=== PATIENT | female | born 1965 | race Hispanic/Latino ===

== ENCOUNTER 2017-06-21 13:41 | Outpatient (CLI) | payer BC ==
--- NOTE | 2017-06-21 15:31 | Mammography Report ---
Screening mammogram: Routine views are obtained and compared to prior exams in 2013 and 2015. There is generally fatty replaced tissue. The residual fibroglandular elements are generally symmetric in distribution. In the left CC projection laterally there is a circumscribed 4.6 mm density which is not identified in the lateral projection nor on the previous exams in either projection. The breast pattern otherwise is unremarkable bilaterally. CAD used. Impression: Left asymmetry. Recommendation: Additional compression imaging of the left breast and ultrasound as needed. BI-RADS CATEGORY: 0 = Needs additional imaging evaluation ACR BI-RADS MAMMOGRAPHIC CODES: 0 = Needs additional imaging evaluation; 1 = Negative; 2 = Benign; 3 = Probably benign; 4 = Suspicious; 5 = Malignant; 6 = Known biopsy-proven malignancy COMMENT: 1. Dense breast tissue, i.e., adenosis, fibrocystic changes, etc., may obscure an underlying neoplasm. 2. Approximately 10% of cancers are not detected with mammography. 3. A negative mammography report should not delay biopsy if a clinically suspicious mass is present.
== END 2017-06-21 13:42 | disposition home or self-care (01) ==
LOC: MAMMO 13:41
PROVIDERS: ATTEND Obstetrics & Gynecology
DX: Z12.31 Encounter for screening mammogram for malignant neoplasm of breast (principal); M06.9 Rheumatoid arthritis, unspecified
CPT/HCPCS: 77067; G0202

== ENCOUNTER 2017-09-24 10:38 | Outpatient (CLI) | payer BC ==
--- NOTE | 2017-09-24 11:54 | XRay Report ---
CERVICAL SPINE, 6 VIEWS HISTORY: Cervicalgia, neck pain. FINDINGS: There is normal bone mineralization. No evidence for fracture, subluxation or bone lesion. There is straightening of the normal cervical lordosis on the neutral lateral image. Flexion and extension lateral views were also obtained which demonstrate no evidence for subluxation/instability. Minimal disc space narrowing and uncovertebral spurring is identified at C4-5 and C5-6. The remaining disc levels are within normal limits. The oblique images are of good quality and demonstrate no significant neural foraminal impingement. There is minimal bilateral neural foraminal narrowing at C3-4 estimated 25% or less. The remaining neural foramen are widely patent. Mild facet arthropathy on the left side is suspected at C3-4 and C4-5. The remaining facet joints are unremarkable. Prevertebral soft tissues are normal. IMPRESSION: Mild straightening of the normal lordosis. This could be secondary to muscular spasm or positioning of the patient. No evidence for instability, fracture or bone lesion. Early degenerative disc disease and facet arthropathy as described.
--- NOTE | 2017-09-24 11:55 | XRay Report ---
ROUTINE CHEST, TWO VIEWS: HISTORY: chest pain, cervicalgia. The trachea, heart, mediastinal contour, lung pressley and bony thorax are unremarkable. IMPRESSION: Normal chest.
--- NOTE | 2017-09-24 11:57 | XRay Report ---
BILATERAL FEET, 3 VIEWS HISTORY: Bilateral foot pain. FINDINGS: There is normal bone mineralization. No evidence for fracture, malalignment or erosive joint pathology. No significant osteoarthritic changes. Tiny bilateral accessory navicular bones are identified measuring less than 5 mm. Tiny plantar spur on the right foot is noted. The soft tissues are within normal limits. IMPRESSION: Essentially unremarkable x-ray of the bilateral feet. Small bilateral accessory navicular bones which are probably incidental findings. Tiny plantar spur on right side.
== END 2017-09-24 10:39 | disposition home or self-care (01) ==
LOC: XRAY 10:38
PROVIDERS: ATTEND Specialist
DX: M50.30 Other cervical disc degeneration, unspecified cervical region (principal); M05.70 Rheumatoid arthritis with rheumatoid factor of unspecified site without organ or systems involvement; R07.9 Chest pain, unspecified; M12.88 Other specific arthropathies, not elsewhere classified, other specified site; Z79.899 Other long term (current) drug therapy
CPT/HCPCS: 71020; 72052

== ENCOUNTER 2018-08-19 15:34 | Outpatient (CLI) | payer BC ==
[2018-08-19 16:33] LABS: Basophils # (Auto) 0.1 K/mm3 (0.0-0.1); Basophils % (Auto) 1.1 % (0.0-1.8); Eosinophils # (Auto) 0.2 K/mm3 (0.0-0.4); Eosinophils % (Auto) 2.5 % (0.0-4.3); Hematocrit 39.6 % (30.3-42.9); Hemoglobin 13.6 gm/dl (10.1-14.3); Lymphocytes # (Auto) 2.6 K/mm3 (1.2-5.4); Lymphocytes % (Auto) 39.6 % (13.4-35.0); Mean Corpuscular HGB Conc 34 % (30-34); Mean Corpuscular Hemoglobin 33 pg (28-32); Mean Corpuscular Volume 96 fl (79-97); Monocytes # (Auto) 0.4 K/mm3 (0.0-0.8); Monocytes % (Auto) 6.8 % (0.0-7.3); Platelet Count 220 K/mm3 (140-440); Red Blood Count 4.14 M/mm3 (3.65-5.03); Red Cell Distribution Width 14.2 % (13.2-15.2)
[2018-08-19 16:51] LABS: Erythrocyte Sedimentation Rate 17 mm/Hr (0-20)
[2018-08-19 17:13] LABS: Alanine Aminotransferase 20 units/L (7-56); Albumin 4.7 g/dL (3.9-5); BUN/Creatinine Ratio 23; Blood Urea Nitrogen 14 mg/dL (7-17); Calcium 9.6 mg/dL (8.4-10.2); Hemolysis Index 13
== END 2018-08-19 15:35 | disposition home or self-care (01) ==
LOC: LAB 15:34
DX: M05.79 Rheumatoid arthritis with rheumatoid factor of multiple sites without organ or systems involvement (principal)
CPT/HCPCS: 36415; 80053; 85025; 85652; 86140; 86706

== ENCOUNTER 2018-12-17 15:31 | Outpatient (CLI) | payer BC ==
[2018-12-17 16:10] LABS: Basophils # (Auto) 0.1 K/mm3 (0.0-0.1); Basophils % (Auto) 1.1 % (0.0-1.8); Eosinophils # (Auto) 0.2 K/mm3 (0.0-0.4); Eosinophils % (Auto) 2.8 % (0.0-4.3); Hematocrit 37.9 % (30.3-42.9); Hemoglobin 13.4 gm/dl (10.1-14.3); Lymphocytes # (Auto) 2.5 K/mm3 (1.2-5.4); Lymphocytes % (Auto) 38.1 % (13.4-35.0); Mean Corpuscular HGB Conc 35 % (30-34); Mean Corpuscular Volume 94 fl (79-97); Monocytes # (Auto) 0.5 K/mm3 (0.0-0.8); Monocytes % (Auto) 7.9 % (0.0-7.3); Platelet Count 199 K/mm3 (140-440); Red Blood Count 4.03 M/mm3 (3.65-5.03); Red Cell Distribution Width 12.7 % (13.2-15.2)
[2018-12-17 16:16] LABS: Alanine Aminotransferase 27 units/L (7-56); Albumin 4.6 g/dL (3.9-5); BUN/Creatinine Ratio 30; Blood Urea Nitrogen 15 mg/dL (7-17); Calcium 9.3 mg/dL (8.4-10.2); Hemolysis Index 6
[2018-12-17 16:41] LABS: Erythrocyte Sedimentation Rate 10 mm/Hr (0-20)
== END 2018-12-17 15:32 | disposition home or self-care (01) ==
LOC: LAB 15:31
PROVIDERS: ATTEND Internal Medicine Rheumatology
DX: M05.79 Rheumatoid arthritis with rheumatoid factor of multiple sites without organ or systems involvement (principal); M19.90 Unspecified osteoarthritis, unspecified site
CPT/HCPCS: 36415; 80053; 85025; 85652

== ENCOUNTER 2019-03-20 10:43 | Outpatient (CLI) | payer BC ==
[2019-03-20 11:15] LABS: Basophils # (Auto) 0.1 K/mm3 (0.0-0.1); Basophils % (Auto) 1.1 % (0.0-1.8); Eosinophils # (Auto) 0.2 K/mm3 (0.0-0.4); Eosinophils % (Auto) 2.7 % (0.0-4.3); Hematocrit 42.6 % (30.3-42.9); Hemoglobin 14.5 gm/dl (10.1-14.3); Lymphocytes % (Auto) 28.9 % (13.4-35.0); Mean Corpuscular HGB Conc 34 % (30-34); Mean Corpuscular Volume 98 fl (79-97); Monocytes # (Auto) 0.5 K/mm3 (0.0-0.8); Monocytes % (Auto) 7.8 % (0.0-7.3); Platelet Count 218 K/mm3 (140-440); Red Blood Count 4.34 M/mm3 (3.65-5.03); Red Cell Distribution Width 14.1 % (13.2-15.2)
[2019-03-20 11:52] LABS: Alanine Aminotransferase 26 units/L (7-56); Albumin 4.4 g/dL (3.9-5); BUN/Creatinine Ratio 17; Blood Urea Nitrogen 10 mg/dL (7-17); Calcium 9.5 mg/dL (8.4-10.2); Hemolysis Index 11
[2019-03-20 11:57] LABS: Erythrocyte Sedimentation Rate 2 mm/Hr (0-20)
--- NOTE | 2019-03-20 14:24 | Cat Scan Report ---
CT THORACIC SPINE WITHOUT CONTRAST History: Acute left-sided back pain. Technique: Helical CT in 1.25 mm intervals. Sagittal and coronal reformatted images. Comparison: No relevant comparison. FINDINGS: There is normal bone mineralization. Normal height and alignment of the thoracic vertebral bodies. The posterior elements are in appropriate relationship. No evidence for fracture, subluxation or bone lesion. Minimal disc space narrowing and anterior spurring is identified at T6-7. The remaining disc levels are within normal limits. The facet joints are unremarkable. No significant facet arthropathy. Although intraspinal contents can be obscured on CT, the spinal canal appears normal diameter. No large bulging disc or epidural process is identified. The paraspinal soft tissues are within normal limits. IMPRESSION: Essentially unremarkable CT of the thoracic spine. Minimal degenerative disc disease at T6-7.
--- NOTE | 2019-03-20 14:29 | Cat Scan Report ---
CT LUMBAR SPINE WITHOUT CONTRAST HISTORY: Acute left sided back pain without sciatica. TECHNIQUE: Helical CT with sagittal and coronal reformatted images. COMPARISON: No relevant comparisons at this facility. FINDINGS: There is normal height and alignment of the lumbar vertebral bodies. No evidence for fracture, subluxation or bone lesion. The posterior elements are in appropriate relationship. Mild osteoarthritic changes are noted in the lower lumbar spine. Although intraspinal contents can be obscured on CT, there is no evidence for a large bulging disc or epidural process. No central canal stenosis. L1-2: No significant abnormality. L2-3: No significant abnormality L3-4: No significant abnormality with the disc. There is mild left facet arthropathy. L4-5: Mild disc space narrowing and minimal bilateral facet arthropathy are noted. L5-S1: Mild disc space narrowing with mild right lateral spurring is identified. Mild facet arthropathy. Mild right neural foraminal narrowing is estimated at 50%. IMPRESSION: Mild lumbar spondylosis as outlined above. No acute injury is appreciated on CT.
== END 2019-03-20 10:44 | disposition home or self-care (01) ==
LOC: XRAY 10:43
PROVIDERS: ATTEND Family Medicine
DX: M47.816 Spondylosis without myelopathy or radiculopathy, lumbar region (principal); M46.87 Other specified inflammatory spondylopathies, lumbosacral region; M48.02 Spinal stenosis, cervical region; Z79.899 Other long term (current) drug therapy; M51.34 Other intervertebral disc degeneration, thoracic region; M48.04 Spinal stenosis, thoracic region
CPT/HCPCS: 36415; 72128; 72131; 80053; 85025; 85652

== ENCOUNTER 2019-08-20 15:35 | Outpatient (CLI) | payer BC ==
[2019-08-20 16:04] LABS: Basophils # (Auto) 0.1 K/mm3 (0.0-0.1); Basophils % (Auto) 1.2 % (0.0-1.8); Eosinophils # (Auto) 0.1 K/mm3 (0.0-0.4); Eosinophils % (Auto) 1.9 % (0.0-4.3); Hematocrit 39.4 % (30.3-42.9); Hemoglobin 13.4 gm/dl (10.1-14.3); Lymphocytes # (Auto) 1.9 K/mm3 (1.2-5.4); Lymphocytes % (Auto) 31.8 % (13.4-35.0); Mean Corpuscular HGB Conc 34 % (30-34); Mean Corpuscular Volume 96 fl (79-97); Monocytes # (Auto) 0.4 K/mm3 (0.0-0.8); Monocytes % (Auto) 6.9 % (0.0-7.3); Platelet Count 233 K/mm3 (140-440); Red Blood Count 4.09 M/mm3 (3.65-5.03); Red Cell Distribution Width 13.5 % (13.2-15.2)
[2019-08-20 16:15] LABS: Alanine Aminotransferase 22 units/L (7-56); Albumin 4.7 g/dL (3.9-5); BUN/Creatinine Ratio 22; Blood Urea Nitrogen 13 mg/dL (7-17); Calcium 9.5 mg/dL (8.4-10.2); Hemolysis Index 4
[2019-08-20 16:36] LABS: Erythrocyte Sedimentation Rate 30 mm/Hr (0-20)
== END 2019-08-20 15:36 | disposition home or self-care (01) ==
LOC: LAB 15:35
PROVIDERS: ATTEND Internal Medicine Rheumatology
DX: M05.79 Rheumatoid arthritis with rheumatoid factor of multiple sites without organ or systems involvement (principal); Z79.899 Other long term (current) drug therapy
CPT/HCPCS: 36415; 80053; 85025; 85652

== ENCOUNTER 2019-12-03 15:52 | Outpatient (CLI) | payer BC ==
[2019-12-03 16:12] LABS: Basophils # (Auto) 0.1 K/mm3 (0.0-0.1); Basophils % (Auto) 0.8 % (0.0-1.8); Eosinophils # (Auto) 0.1 K/mm3 (0.0-0.4); Eosinophils % (Auto) 1.9 % (0.0-4.3); Hematocrit 37.3 % (30.3-42.9); Lymphocytes # (Auto) 2.7 K/mm3 (1.2-5.4); Lymphocytes % (Auto) 39.3 % (13.4-35.0); Mean Corpuscular HGB Conc 35 % (30-34); Mean Corpuscular Volume 95 fl (79-97); Monocytes # (Auto) 0.5 K/mm3 (0.0-0.8); Monocytes % (Auto) 7.4 % (0.0-7.3); Platelet Count 243 K/mm3 (140-440); Red Blood Count 3.93 M/mm3 (3.65-5.03); Red Cell Distribution Width 13.5 % (13.2-15.2)
[2019-12-03 16:35] LABS: Alanine Aminotransferase 23 units/L (7-56); Albumin 4.6 g/dL (3.9-5); BUN/Creatinine Ratio 20; Blood Urea Nitrogen 12 mg/dL (7-17); Calcium 9.4 mg/dL (8.4-10.2); Hemolysis Index 3
[2019-12-03 16:41] LABS: Bilirubin,Direct < 0.2 mg/dL (0-0.2)
== END 2019-12-03 15:53 | disposition home or self-care (01) ==
LOC: LAB 15:52
PROVIDERS: ATTEND Internal Medicine Rheumatology
DX: Z79.899 Other long term (current) drug therapy (principal)
CPT/HCPCS: 36415; 80053; 80076; 85025

== ENCOUNTER 2020-03-26 06:29 | Outpatient (CLI) | payer BC ==
[2020-03-26 07:03] LABS: Chol/HDL Ratio 3.7 %
--- NOTE | 2020-03-26 08:27 | Mammography Report ---
DIGITAL SCREENING MAMMOGRAM WITH CAD, 03/26/2020 INDICATION: Routine screening mammography. TECHNIQUE: Digital bilateral 2D mammography was obtained in the craniocaudal and mediolateral obliq ue projections. This examination was interpreted with the benefit of Computer-Aided Detection analysi s. COMPARISON: 06/21/2017, 06/07/2015. FINDINGS: Breast Density: There are scattered areas of fibroglandular density. There is no evidence of dominant mass, suspicious calcifications or architectural distortion in eithe r breast. IMPRESSION: Follow up recommendation: Routine yearly BI-RADS Category 1: Negative. A "normal" or negative report should not discourage follow up or biopsy of a clinically significant f inding. A written summary of these findings will be mailed to the patient. The patient will be entered into a mammography reporting system which will generate a reminder letter for the patient's next appointmen t at the appropriate interval. The [employer] recommends yearly mammograms starting at age 40 and continuing as l emilee as a woman is in good health. Breast MRI is recommended for women with an approximate 20-25% or greater lifetime risk of breast cancer, including women with a strong family history of breast or ova mahin cancer or who have been treated for Hodgkin's disease. Signer Name: Jian Hernandez MD Signed: 03/26/2020 8:23 AM Workstation Name: [email or web address]
== END 2020-03-26 06:30 | disposition home or self-care (01) ==
LOC: LAB 06:29
PROVIDERS: ATTEND Internal Medicine Rheumatology
DX: Z12.31 Encounter for screening mammogram for malignant neoplasm of breast (principal); M05.79 Rheumatoid arthritis with rheumatoid factor of multiple sites without organ or systems involvement; Z79.899 Other long term (current) drug therapy
CPT/HCPCS: 36415; 77067; 80061

== ENCOUNTER 2020-09-10 12:36 | Emergency (ER) | payer BC ==
[2020-09-10 13:21] VITALS: BP 160/83
--- NOTE | 2020-09-10 15:45 | Emergency Department Report ---
ED Female HPI - General Chief complaint: Urogenital-Female Stated complaint: BLADDER INFECTION Source: patient Mode of arrival: Ambulatory Limitations: No Limitations - History of Present Illness Initial comments: 55 y/o female comes in for a couples weeks of pelvic spasms. Sunday started having dysuria and right flank pain. No sure if she has blood in her urine. No fevers but having chills and nausea. Patient reports that she is been currently taking Macrobid for urinary tract infection. Patient does report a history of UTIs. She admits to nausea no vomiting today and has chills. Patient states that she is a means suppressant for her rheumatoid arthritis. She reports that she is currently menopausal. MD Complaint: dysuria, pelvic pain Onset/Timin -: week(s) Radiation: R flank Severity scale (0 -10): 6 Quality: cramping Consistency: intermittent Improves with: none Worsens with: none Are you Now?: No Associated Symptoms: nausea/vomiting (Nausea), dysuria. denies: vaginal discharge, vaginal bleeding, fever/chills (Chills), loss of appetite, hematuria, shortness of breath, syncope, weakness - Related Data Previous Rx's Medication Instructions Recorded Last Taken Type Cyclobenzaprine [Flexeril] 10 mg PO TID PRN #30 tablet 10/06/16 Unknown Rx Ibuprofen [Motrin] 800 mg PO Q8HR PRN #30 tablet 10/06/16 Unknown Rx Amoxicillin/K Clav Tab [Augmentin 1 tab PO Q12HR 7 Days #14 tab 09/10/20 Unknown Rx 875 mg] Allergies Allergy/AdvReac Type Severity Reaction Status Date / Time No Known Allergies Allergy Unverified 06/07/15 10:08 ED Review of Systems ROS: Stated complaint: BLADDER INFECTION Other details as noted in HPI Comment: All other systems reviewed and negative ED Past Medical Hx - Past Medical History Previous Medical History?: Yes Hx Arthritis: Yes (RA) - Surgical History Past Surgical History?: Yes Additional Surgical History: TUBAL LIGATION - Social History Smoking Status: Never Smoker Substance Use Type: Alcohol - Medications Home Medications: Home Medications Medication Instructions Recorded Confirmed Last Taken Type Cyclobenzaprine [Flexeril] 10 mg PO TID PRN #30 tablet 10/06/16 Unknown Rx Ibuprofen [Motrin] 800 mg PO Q8HR PRN #30 tablet 10/06/16 Unknown Rx Amoxicillin/K Clav Tab [Augmentin 1 tab PO Q12HR 7 Days #14 tab 09/10/20 Unknown Rx 875 mg] ED Physical Exam - General Limitations: No Limitations General appearance: alert, in no apparent distress - Head Head exam: Present: atraumatic, normocephalic - Eye Eye exam: Present: normal appearance - ENT ENT exam: Present: mucous membranes moist - Neck Neck exam: Present: normal inspection, full ROM - Respiratory Respiratory exam: Present: normal lung sounds bilaterally. Absent: respiratory distress - Cardiovascular Cardiovascular Exam: Present: regular rate, normal rhythm. Absent: systolic murmur, diastolic murmur, rubs, gallop - GI/Abdominal GI/Abdominal exam: Present: soft, tenderness (Right upper quadrant and super pubic). Absent: distended - Back Exam Back exam: Present: normal inspection, full ROM. Absent: tenderness, CVA tenderness (R), CVA tenderness (L) - Neurological Exam Neurological exam: Present: alert, oriented X3, normal gait - Psychiatric Psychiatric exam: Present: normal affect, normal mood - Skin Skin exam: Present: warm, dry, intact, normal color. Absent: rash ED Course Vital Signs 09/10/20 09/10/20 13:17 13:18 Temperature 98.2 F 98.2 F Pulse Rate 78 Respiratory 18 Rate Blood Pressure 160/83 [Right] O2 Sat by Pulse 100 Oximetry ED Medical Decision Making - Radiology Data Radiology results: report reviewed Patient: RUY OSULLIVAN MR#: [id number] : 1965 Acct:[id number] Age/Sex: 55 / F ADM Date: 09/10/20 Loc: ED Attending Dr: Ordering Physician: SOY TAO Date of Service: 09/10/20 Procedure(s): CT abdomen pelvis wo con Accession Number(s): [id number] cc: SOY TAO CT ABDOMEN AND PELVIS WITHOUT CONTRAST INDICATION: right flank pain. TECHNIQUE: Axial CT images were obtained through the abdomen and pelvis without IV contrast. All CT scans at this location are performed using CT dose reduction for ALARA by means of automated exposure cont rol. COMPARISON: CT abdomen and pelvis 10/06/2016 FINDINGS: LOWER CHEST: No significant abnormality. LIVER: No significant abnormality. GALLBLADDER: Large 2.7 cm lamellated gallstone without CT evidence for cholecystitis. BILE DUCTS: No significant abnormality. PANCREAS: No significant abnormality. SPLEEN: No significant abnormality. ADRENALS: No significant abnormality. RIGHT KIDNEY and URETER: No significant abnormality. LEFT KIDNEY and URETER: No significant abnormality. STOMACH and SMALL BOWEL: No significant abnormality. COLON: Moderate sigmoid and mild colonic diverticulosis without diverticulitis. Large amount of solid stool characteristic for constipation APPENDIX: Normal PERITONEUM: No free fluid. No free air. No fluid collection. LYMPH NODES: No significant adenopathy. AORTA and ARTERIES: No significant abnormality. IVC and VEINS: No significant abnormality. URINARY BLADDER: No significant abnormality. REPRODUCTIVE ORGANS: No significant abnormality. ADDITIONAL FINDINGS: None. SKELETAL SYSTEM: No significant abnormality. IMPRESSION: 1. No urinary tract calculi or hydronephrosis 2. Cholelithiasis and moderate sigmoid diverticulosis 3. Constipation Signer Name: Krystian Stinson MD Signed: 09/10/2020 5:46 PM Workstation Name: [id number] Transcribed By: TL Dictated By: Krystian Stinson MD Electronically Authenticated By: Krystian Stinson MD Signed Date/Time: 09/10/201745 DD/ 43 TD/TT: - Medical Decision Making 55 y/o female comes in for a couples weeks of pelvic spasms. Sunday started having dysuria and right flank pain. No sure if she has blood in her urine. No fevers but having chills and nausea. Patient reports that she is been currently taking Macrobid for urinary tract infection. Patient does report a history of UTIs. She admits to nausea no vomiting today and has chills. Patient states that she is a means suppressant for her rheumatoid arthritis. She reports that she is currently menopausal. CT scan shows that you have cholelithiasis with a gallstone of 2.7 mm, constipation and diverticulosis. As we discussed I will place you on Augmentin 875 mg twice a day for 7 days to see if that improves your concern for urinary tract infection. As I discussed we need to increase your fiber you can try taking the MiraLAX twice a day or mag citrate x1 dose this weekend to see if you are able to clean out your colon at that improve the spasms that you are having in your bladder or pelvis. I would like you to continue with some Tylenol or ibuprofen for pain management. Be sure to increase your water intake. IM sinew to a general surgeon to evaluate your cholelithiasis. I would like you to also follow-up with a GI specialist for your diverticulosis. You may benefit from following up with your CARBIDE OPERATOR or your primary care provider for your bladder spasms. Critical care attestation.: If time is entered above; I have spent that time in minutes in the direct care of this critically ill patient, excluding procedure time. ED Disposition Clinical Impression: Diverticulosis, Painful bladder spasm Cholelithiasis Qualifiers: Cholelithiasis location: gallbladder Cholecystitis presence: without cholecys titis Biliary obstruction: without biliary obstruction Qualified Code(s): K80.20 - Calculus of gallbladder without cholecystitis without obstruction Constipation Qualifiers: Constipation type: unspecified constipation type Qualified Code(s): K59.00 - Constipation, unspecified Disposition: TO HOME OR SELFCARE Is pt being admited?: No Does the pt Need Aspirin: No Condition: Stable Instructions: Diverticulosis (ED), Diverticulosis Diet (ED), Constipation (ED), High Fiber Diet (ED), Cholelithiasis (ED) Additional Instructions: CT scan shows that you have cholelithiasis with a gallstone of 2.7 mm, constipation and diverticulosis. As we discussed I will place you on Augmentin 875 mg twice a day for 7 days to see if that improves your concern for urinary tract infection. As I discussed we need to increase your fiber you can try taking the MiraLAX twice a day or mag citrate x1 dose this weekend to see if you are able to clean out your colon at that improve the spasms that you are having in your bladder or pelvis. I would like you to continue with some Tylenol or ibuprofen for pain management. Be sure to increase your water intake. IM sinew to a general surgeon to evaluate your cholelithiasis. I would like you to also follow-up with a GI specialist for your diverticulosis. You may benefit from f ollowing up with your CARBIDE OPERATOR or your primary care provider for your bladder spasms. Prescriptions: Amoxicillin/K Clav Tab [Augmentin 875 mg] 1 tab PO Q12HR 7 Days #14 tab Referrals: PRIMARY CARE, [Primary Care Provider] - 3-5 Days PHYLLIS JOHN DO [Staff Physician] - 3-5 Days [facility] [Provider Group] - 3-5 Days [facility] [Provider Group] - 3-5 Days [facility] [Provider Group] - 3-5 Days JUANA CADENA MD [Staff Physician] - 3-5 Days Forms: Work/School Release Form(ED)
[2020-09-10 15:46] LABS: Bilirubin,Urine NEG (Negative); Blood,Urine SM (Negative); Color,Urine Yellow (Yellow); Protein,Urine <15 mg/dL mg/dL (Negative); RBC,Urine < 1.0 /HPF (0.0-6.0); Urobilinogen,Urine < 2.0 mg/dL (<2.0)
[2020-09-10] MEDS ORDERED: PHENAZOPYRIDINE 200 MG TAB PO ONE (15:46)
[2020-09-10] MEDS ORDERED: ACETAMINOPHEN 500 MG TAB PO ONE (15:46)
--- NOTE | 2020-09-10 17:51 | Cat Scan Report ---
CT ABDOMEN AND PELVIS WITHOUT CONTRAST INDICATION: right flank pain. TECHNIQUE: Axial CT images were obtained through the abdomen and pelvis without IV contrast. All CT scans at [facility] location are performed using CT dose reduction for ALARA by means of automated exposure control. COMPARISON: CT abdomen and pelvis 10/06/2016 FINDINGS: LOWER CHEST: No significant abnormality. LIVER: No significant abnormality. GALLBLADDER: Large 2.7 cm lamellated gallstone without CT evidence for cholecystitis. BILE DUCTS: No significant abnormality. PANCREAS: No significant abnormality. SPLEEN: No significant abnormality. ADRENALS: No significant abnormality. RIGHT KIDNEY and URETER: No significant abnormality. LEFT KIDNEY and URETER: No significant abnormality. STOMACH and SMALL BOWEL: No significant abnormality. COLON: Moderate sigmoid and mild colonic diverticulosis without diverticulitis. Large amount of solid stool characteristic for constipation APPENDIX: Normal PERITONEUM: No free fluid. No free air. No fluid collection. LYMPH NODES: No significant adenopathy. AORTA and ARTERIES: No significant abnormality. IVC and VEINS: No significant abnormality. URINARY BLADDER: No significant abnormality. REPRODUCTIVE ORGANS: No significant abnormality. ADDITIONAL FINDINGS: None. SKELETAL SYSTEM: No significant abnormality. IMPRESSION: 1. No urinary tract calculi or hydronephrosis 2. Cholelithiasis and moderate sigmoid diverticulosis 3. Constipation Signer Name: Krystian Stinson MD Signed: 09/10/2020 5:46 PM Workstation Name: [email or web address]
== END 2020-09-10 19:30 | disposition home or self-care (01) ==
LOC: ED 12:36
DX: K57.90 Diverticulosis of intestine, part unspecified, without perforation or abscess without bleeding (principal); K80.20 Calculus of gallbladder without cholecystitis without obstruction; N32.89 Other specified disorders of bladder; M19.90 Unspecified osteoarthritis, unspecified site; Z98.51 Tubal ligation status; Z79.1 Long term (current) use of non-steroidal anti-inflammatories (NSAID); Z79.2 Long term (current) use of antibiotics
CPT/HCPCS: 74176; 81001; 87086

== ENCOUNTER 2021-02-04 15:48 | Outpatient (CLI) | payer BC ==
[2021-02-04 16:13] LABS: Basophils # (Auto) 0.1 K/mm3 (0.0-0.1); Basophils % (Auto) 0.8 % (0.0-1.8); Eosinophils # (Auto) 0.1 K/mm3 (0.0-0.4); Eosinophils % (Auto) 1.1 % (0.0-4.3); Hematocrit 38.4 % (30.3-42.9); Hemoglobin 13.5 gm/dl (10.1-14.3); Lymphocytes # (Auto) 2.8 K/mm3 (1.2-5.4); Lymphocytes % (Auto) 38.1 % (13.4-35.0); Mean Corpuscular HGB Conc 35 % (30-34); Mean Corpuscular Volume 93 fl (79-97); Monocytes # (Auto) 0.7 K/mm3 (0.0-0.8); Monocytes % (Auto) 9.2 % (0.0-7.3); Platelet Count 263 K/mm3 (140-440); Red Blood Count 4.15 M/mm3 (3.65-5.03); Red Cell Distribution Width 12.6 % (13.2-15.2)
[2021-02-04 16:36] LABS: Alanine Aminotransferase 18 units/L (7-56); Albumin 4.5 g/dL (3.9-5); Blood Urea Nitrogen 15 mg/dL (7-17); Calcium 9.2 mg/dL (8.4-10.2); Hemolysis Index 11
[2021-02-04 16:45] LABS: BUN/Creatinine Ratio 21
== END 2021-02-04 15:49 | disposition home or self-care (01) ==
LOC: LAB 15:48
PROVIDERS: ATTEND Internal Medicine Rheumatology
DX: M05.79 Rheumatoid arthritis with rheumatoid factor of multiple sites without organ or systems involvement (principal); Z79.899 Other long term (current) drug therapy
CPT/HCPCS: 36415; 80053; 85025

== ENCOUNTER 2021-06-10 15:43 | Outpatient (CLI) | payer BC ==
[2021-06-10 16:21] LABS: Basophils # (Auto) 0.1 K/mm3 (0.0-0.1); Eosinophils # (Auto) 0.1 K/mm3 (0.0-0.4); Eosinophils % (Auto) 1.3 % (0.0-4.3); Hematocrit 36.8 % (30.3-42.9); Hemoglobin 12.7 gm/dl (10.1-14.3); Lymphocytes # (Auto) 2.6 K/mm3 (1.2-5.4); Lymphocytes % (Auto) 46.5 % (13.4-35.0); Mean Corpuscular HGB Conc 35 % (30-34); Mean Corpuscular Volume 94 fl (79-97); Monocytes # (Auto) 0.5 K/mm3 (0.0-0.8); Monocytes % (Auto) 8.7 % (0.0-7.3); Platelet Count 226 K/mm3 (140-440); Red Blood Count 3.92 M/mm3 (3.65-5.03)
[2021-06-10 16:33] LABS: Alanine Aminotransferase 19 units/L (7-56); Albumin 4.5 g/dL (3.9-5); Blood Urea Nitrogen 14 mg/dL (7-17); Calcium 9.5 mg/dL (8.4-10.2); Hemolysis Index 8
[2021-06-10 16:38] LABS: BUN/Creatinine Ratio 23
[2021-06-10 17:26] LABS: Erythrocyte Sedimentation Rate 17 mm/Hr (0-20)
[2021-06-14 14:33] LABS: Vitamin D, 25-OH, D2 <4 ng/mL
== END 2021-06-10 15:44 | disposition home or self-care (01) ==
LOC: LAB 15:43
PROVIDERS: ATTEND Family Medicine
DX: F41.8 Other specified anxiety disorders (principal); M05.9 Rheumatoid arthritis with rheumatoid factor, unspecified
CPT/HCPCS: 36415; 80053; 82306; 84443; 85025; 85652; 86140

== ENCOUNTER 2021-09-26 14:27 | Emergency (ER) | payer BC ==
[2021-09-26] MEDS ORDERED: ONDANSETRON 4 MG/2 ML INJ IV ONE (15:15)
[2021-09-26] MEDS ORDERED: SODIUM CHLORIDE 0.9% 1000 ML 1,000 ML IV ONE (15:15)
[2021-09-26] MEDS ORDERED: MORPHINE 4 MG/1 ML INJ IV ONE (15:15)
--- NOTE | 2021-09-26 15:23 | Emergency Department Report ---
ED Abdominal Pain HPI - General Chief Complaint: Abdominal Pain Stated Complaint: LOWER ABD PAIN/HEADACHE/ NO BM Time Seen by Provider: 09/26/21 15:02 Source: patient Mode of arrival: Ambulatory Limitations: No Limitations - History of Present Illness Initial Comments: pt is 56-year-old female presents emergency room with complaints of lower abdominal pain that began 2 days ago. She states that she has not been able to have a bowel movement for 2 days. she states that she took senna and Dulcolax without much relief. She has associated nausea and subjective fever. She denies any vomiting, diarrhea, urinary symptoms, melena, hematochezia, hemate mesis. Past medical history of rheumatoid arthritis on immune suppressant. No allergies to medications. Past abdominal surgical history of tubal ligation. - Related Data Previous Rx's Medication Instructions Recorded Last Taken Type Cyclobenzaprine [Flexeril] 10 mg PO TID PRN #30 tablet 10/06/16 Unknown Rx Ibuprofen [Motrin] 800 mg PO Q8HR PRN #30 tablet 10/06/16 Unknown Rx Amoxicillin/K Clav Tab [Augmentin 1 tab PO Q12HR 7 Days #14 tab 09/10/20 Unknown Rx 875 mg] Ciprofloxacin HCl [Ciprofloxacin 500 mg PO BID 7 Days #28 tablet 09/26/21 Unknown Rx TAB] Glycerin 1 each RC DAILY PRN #10 supp.rect 09/26/21 Unknown Rx Magnesium Citrate 295 ml PO ONCE #1 solution 09/26/21 Unknown Rx Ondansetron [Zofran Odt] 4 mg PO Q8HR PRN #8 tab.rapdis 09/26/21 Unknown Rx metroNIDAZOLE [Flagyl] 500 mg PO BID 7 Days #14 tab 09/26/21 Unknown Rx traMADoL [Ultram 50 MG tab] 50 mg PO Q6HR PRN #8 tablet 09/26/21 Unknown Rx Allergies Allergy/AdvReac Type Severity Reaction Status Date / Time No Known Allergies Allergy Unverified 06/07/15 10:08 ED Review of Systems ROS: Stated complaint: LOWER ABD PAIN/HEADACHE/ NO BM Other details as noted in HPI Comment: All other systems reviewed and negative ED Past Medical Hx - Past Medical History Hx Arthritis: Yes (RA) - Surgical History Additional Surgical History: TUBAL LIGATION - Social History Smoking Status: Never Smoker - Medications Home Medications: Home Medications Medication Instructions Recorded Confirmed Last Taken Type Cyclobenzaprine [Flexeril] 10 mg PO TID PRN #30 tablet 10/06/16 Unknown Rx Ibuprofen [Motrin] 800 mg PO Q8HR PRN #30 tablet 10/06/16 Unknown Rx Amoxicillin/K Clav Tab [Augmentin 1 tab PO Q12HR 7 Days #14 tab 09/10/20 Unknown Rx 875 mg] Ciprofloxacin HCl [Ciprofloxacin 500 mg PO BID 7 Days #28 tablet 09/26/21 Unknown Rx TAB] Glycerin 1 each RC DAILY PRN #10 supp.rect 09/26/21 Unknown Rx Magnesium Citrate 295 ml PO ONCE #1 solution 09/26/21 Unknown Rx Ondansetron [Zofran Odt] 4 mg PO Q8HR PRN #8 tab.rapdis 09/26/21 Unknown Rx metroNIDAZOLE [Flagyl] 500 mg PO BID 7 Days #14 tab 09/26/21 Unknown Rx traMADoL [Ultram 50 MG tab] 50 mg PO Q6HR PRN #8 tablet 09/26/21 Unknown Rx ED Physical Exam - General Limitations: No Limitations General appearance: alert, in no apparent distress - Head Head exam: Present: atraumatic, normocephalic - Eye Eye exam: Present: normal appearance - ENT ENT exam: Present: mucous membranes moist - Respiratory Respiratory exam: Present: normal lung sounds bilaterally. Absent: respiratory distress, wheezes, rales, rhonchi, stridor, chest wall tenderness, accessory muscle use, decreased breath sounds, prolonged expiratory - Cardiovascular Cardiovascular Exam: Present: normal rhythm, tachycardia, normal heart sounds - GI/Abdominal GI/Abdominal exam: Present: soft, tenderness (LLQ, suprapubic), normal bowel sounds. Absent: distended, guarding, rebound, rigid - Neurological Exam Neurological exam: Present: alert, oriented X3 - Psychiatric Psychiatric exam: Present: normal affect, normal mood - Skin Skin exam: Present: warm, dry, intact ED Course Vital Signs 09/26/21 09/26/21 09/26/21 14:57 15:45 15:47 Temperature 99.7 F H Pulse Rate 118 H Respiratory 18 16 16 Rate Blood Pressure 130/89 Blood Pressure [Left] O2 Sat by Pulse 99 Oximetry 09/26/21 21:08 Temperature 99.4 F Pulse Rate 109 H Respiratory 18 Rate Blood Pressure Blood Pressure 115/72 [Left] O2 Sat by Pulse 97 Oximetry - Reevaluation(s) Reevaluation #1: 09/26/21 17:03 called lab regarding lab delay, they advised had an issue with the machine and had to reload and it is running now ED Medical Decision Making - Lab Data Result diagrams: 09/26/21 15:19 09/26/21 15:19 Lab Results 09/26/21 09/26/21 09/26/21 Range/Units 15:19 15:19 Unknown WBC 13.7 H (4.5-11.0) K/mm3 RBC 4.01 (3.65-5.03) M/mm3 Hgb 12.9 (10.1-14.3) gm/dl Hct 37.5 (30.3-42.9) % MCV 94 (79-97) fl MCH 32 (28-32) pg MCHC 34 (30-34) % RDW 13.0 L (13.2-15.2) % Plt Count 237 (140-440) K/mm3 Lymph % (Auto) 7.3 L (13.4-35.0) % [place] % (Auto) 3.4 (0.0-7.3) % Eos % (Auto) 0.0 (0.0-4.3) % Baso % (Auto) 0.3 (0.0-1.8) % Lymph # (Auto) 1.0 L (1.2-5.4) K/mm3 [place] # (Auto) 0.5 (0.0-0.8) K/mm3 Eos # (Auto) 0.0 (0.0-0.4) K/mm3 Baso # (Auto) 0.0 (0.0-0.1) K/mm3 Seg Neutrophils % 89.0 H (40.0-70.0) % Seg Neutrophils # 12.2 H (1.8-7.7) K/mm3 Sodium 139 (137-145) mmol/L Potassium 4.5 (3.6-5.0) mmol/L Chloride 99.1 (98-107) mmol/L Carbon Dioxide 20 L (22-30) mmol/L Anion Gap 24 mmol/L BUN 15 (7-17) mg/dL Creatinine 0.6 (0.6-1.2) mg/dL Estimated GFR > 60 ml/min BUN/Creatinine Ratio 25 % Glucose 96 (65-100) mg/dL Calcium 9.1 (8.4-10.2) mg/dL Total Bilirubin 0.80 (0.1-1.2) mg/dL AST 27 (5-40) units/L ALT 20 (7-56) units/L Alkaline Phosphatase 114 (35-129) units/L Total Protein 7.2 (6.3-8.2) g/dL Albumin 4.7 (3.9-5) g/dL Albumin/Globulin Ratio 1.9 % Lipase 25 (13-60) units/L Urine Color Straw (Yellow) Urine Turbidity Clear (Clear) Urine pH 7.0 (5.0-7.0) Ur Specific [place] 1.005 (1.003-1.030) Urine Protein <15 mg/dl (Negative) mg/dL Urine Glucose (UA) Neg (Negative) mg/dL Urine Ketones Neg (Negative) mg/dL Urine Blood Sm (Negative) Urine Nitrite Neg (Negative) Urine Bilirubin Neg (Negative) Urine Urobilinogen < 2.0 (<2.0) mg/dL Ur Leukocyte Esterase Neg (Negative) Urine WBC (Auto) < 1.0 (0.0-6.0) /HPF Urine RBC (Auto) 2.0 (0.0-6.0) /HPF U Epithel Cells (Auto) 2.0 (0-13.0) /HPF Vital Signs (72 hours) 09/26/21 09/26/21 09/26/21 14:57 15:45 15:47 Temperature 99.7 F H Pulse Rate 118 H Respiratory 18 16 16 Rate Blood Pressure 130/89 Blood Pressure [Left] O2 Sat by Pulse 99 Oximetry 09/26/21 21:08 Temperature 99.4 F Pulse Rate 109 H Respiratory 18 Rate Blood Pressure Blood Pressure 115/72 [Left] O2 Sat by Pulse 97 Oximetry - Radiology Data Radiology results: report reviewed Ordering Physician: SOY SAMUEL Date of Service: 09/26/21 Procedure(s): CT abdomen pelvis w con Accession Number(s): [id number] cc: SOY SAMUEL CT ABDOMEN AND PELVIS WITH CONTRAST INDICATION / CLINICAL INFORMATION: LLQ and suprapubic abd pain, nausea, fever. TECHNIQUE: Axial CT images were obtained through the abdomen and pelvis after Omnipaque 300, [address] scans at this location are performed using CT dose reduction for ALARA by means of automated exposure control. COMPARISON: None available. FINDINGS: LOWER CHEST: No significant abnormality. LIVER: No significant abnormality. GALLBLADDER: Large gallstone. No wall thickening or adjacent inflammation. BILE DUCTS: No significant abnormality. PANCREAS: No significant abnormality. SPLEEN: No significant abnormality. ADRENALS: No significant abnormality. RIGHT KIDNEY / URETER: No significant abnormality. LEFT KIDNEY / URETER: No significant abnormality. STOMACH / SMALL BOWEL: No significant abnormality. COLON: Mild thickening/inflammation at the sigmoid colon medially compatible with diverticulitis. No free perforation or abscess. APPENDIX: No significant abnormality. PERITONEUM: Mild. No free air. No fluid collection. LYMPH NODES: No significant adenopathy. VASCULAR STRUCTURES: No significant abnormality. URINARY BLADDER: No significant abnormality. REPRODUCTIVE ORGANS: No significant abnormality. ADDITIONAL FINDINGS: None. SKELETAL SYSTEM: No significant abnormality. IMPRESSION: 1. Mild sigmoid diverticulitis without free perforation or abscess. 2. Mild pelvic free fluid. 3. Large gallstone without wall thickening or adjacent inflammation. Signer Name: Gerry Rich MD Signed: 09/26/2021 6:18 PM Workstation Name: [id number] Transcribed By: ES Dictated By: Gerry Rich MD Electronically Authenticated By: Gerry Rich MD Signed Date/Time: 09/26/211817 DD/ 12 TD/TT: Print - Medical Decision Making pt is 56-year-old female presents emergency room with complaints of lower abdominal pain that began 2 days ago. She states that she has not been able to have a bowel movement for 2 days. she states that she took senna and Dulcolax without much relief. She has associated nausea and subjective fever. She denies any vomiting, diarrhea, urinary symptoms, melena, hematochezia, hematemesis. Past medical history of rheumatoid arthritis on immune suppressant. No allergies to medications. Past abdominal surgical history of tubal ligation. Initial vitals with tachycardia and mild low-grade temperature, improved upon repeat. On exam patient has left lower quadrant and suprapubic tenderness palpation, no guarding, no rebound, no rigidity, normal pulses, no peritoneal signs. Labs significant for mild leukocytosis. Otherwise labs are s table, UA without evidence of UTI. CT abdomen pelvis with IV contrast 1. Mild sigmoid diverticulitis without free perforation or abscess. 2. Mild pelvic free fluid. 3. Large gallstone without wall thickening or adjacent inflammation. Patient given medications on the emergency department with some improvement of her pain. Discussed all results with patient and answer questions. Patient has had no episodes of vomiting while in the emergency room. Patient given prescription for medications. Discussed the importance of outpatient follow-up for reexamination. Discussed strict return precautions with patient. Advised pt Please take medication as prescribed. Increase your water intake. Follow-up with a primary care doctor. Follow-up with a GI doctor. Follow-up with a general surgeon. Return to emergency room immediately for any new or worsening symptoms. Critical care attestation.: If time is entered above; I have spent that time in minutes in the direct care of this critically ill patient, excluding procedure time. ED Disposition Clinical Impression: Diverticulitis Abdominal pain Qualifiers: Abdominal location: lower abdomen, unspecified Qualified Code(s): R10.30 - Lower abdominal pain, unspecified Gallstone Qualifiers: Cholecystitis presence: without cholecystitis Biliary obstruction: without biliary obstruction Qualified Code(s): K80.20 - Calculus of gallbladder without cholecystitis without obstruction Disposition: 01 HOME / SELF CARE / HOMELESS Is pt being admited?: No Does the pt Need Aspirin: No Condition: Stable Instructions: Abdominal Pain (ED) Additional Instructions: Please take medication as prescribed. Increase your water intake. Follow-up with a primary care doctor. Follow-up with a GI doctor. Follow-up with a general surgeon. Return to emergency room immediately for any new or worsening symptoms. Prescriptions: Ciprofloxacin HCl [Ciprofloxacin TAB] 500 mg PO BID 7 Days #28 tablet metroNIDAZOLE [Flagyl] 500 mg PO BID 7 Days #14 tab Glycerin 1 each RC DAILY PRN #10 supp.rect PRN Reason: constipation Magnesium Citrate 295 ml PO ONCE #1 solution traMADoL [Ultram 50 MG tab] 50 mg PO Q6HR PRN #8 tablet PRN Reason: Pain , Severe (7-10) Ondansetron [Zofran Odt] 4 mg PO Q8HR PRN #8 tab.rapdis PRN Reason: nausea/vomiting Referrals: [facility] [Provider Group] - 2-3 Days SABINA,KATIE D, MD [Staff Physician] - 2-3 Days PRIMARY CARE,MD [Primary Care Provider] - 2-3 Days Time of Disposition: 19:32 Print Language: CITIZEN OF [place]
[2021-09-26] MEDS ORDERED: MORPHINE 2 MG/1 ML INJ IV ONE ×4 (15:36→19:31)
[2021-09-26 15:58] LABS: Basophils % (Auto) 0.3 % (0.0-1.8); Hematocrit 37.5 % (30.3-42.9); Hemoglobin 12.9 gm/dl (10.1-14.3); Lymphocytes % (Auto) 7.3 % (13.4-35.0); Mean Corpuscular HGB Conc 34 % (30-34); Mean Corpuscular Volume 94 fl (79-97); Monocytes # (Auto) 0.5 K/mm3 (0.0-0.8); Monocytes % (Auto) 3.4 % (0.0-7.3); Platelet Count 237 K/mm3 (140-440); Red Blood Count 4.01 M/mm3 (3.65-5.03)
[2021-09-26 16:53] LABS: Bilirubin,Urine NEG (Negative); Blood,Urine SM (Negative); Color,Urine Straw (Yellow); Protein,Urine <15 mg/dL mg/dL (Negative); Urobilinogen,Urine < 2.0 mg/dL (<2.0); WBC,Urine < 1.0 /HPF (0.0-6.0)
[2021-09-26 17:10] LABS: Alanine Aminotransferase 20 units/L (7-56); Albumin 4.7 g/dL (3.9-5); Blood Urea Nitrogen 15 mg/dL (7-17); Calcium 9.1 mg/dL (8.4-10.2); Hemolysis Index 21
[2021-09-26 17:17] LABS: BUN/Creatinine Ratio 25
--- NOTE | 2021-09-26 18:22 | Cat Scan Report ---
CT ABDOMEN AND PELVIS WITH CONTRAST INDICATION / CLINICAL INFORMATION: LLQ and suprapubic abd pain, nausea, fever. TECHNIQUE: Axial CT images were obtained through the abdomen and pelvis after Omnipaque 300, 100 cc I V contrast. All CT scans at this location are performed using CT dose reduction for ALARA by means o f automated exposure control. COMPARISON: None available. FINDINGS: LOWER CHEST: No significant abnormality. LIVER: No significant abnormality. GALLBLADDER: Large gallstone. No wall thickening or adjacent inflammation. BILE DUCTS: No significant abnormality. PANCREAS: No significant abnormality. SPLEEN: No significant abnormality. ADRENALS: No significant abnormality. RIGHT KIDNEY / URETER: No significant abnormality. LEFT KIDNEY / URETER: No significant abnormality. STOMACH / SMALL BOWEL: No significant abnormality. COLON: Mild thickening/inflammation at the sigmoid colon medially compatible with diverticulitis. No free perforation or abscess. APPENDIX: No significant abnormality. PERITONEUM: Mild. No free air. No fluid collection. LYMPH NODES: No significant adenopathy. VASCULAR STRUCTURES: No significant abnormality. URINARY BLADDER: No significant abnormality. REPRODUCTIVE ORGANS: No significant abnormality. ADDITIONAL FINDINGS: None. SKELETAL SYSTEM: No significant abnormality. IMPRESSION: 1. Mild sigmoid diverticulitis without free perforation or abscess. 2. Mild pelvic free fluid. 3. Large gallstone without wall thickening or adjacent inflammation. Signer Name: Gerry Rich MD Signed: 09/26/2021 6:18 PM Workstation Name: [id number]
[2021-09-26 21:09] VITALS: BP 115/72
== END 2021-09-26 21:15 | disposition home or self-care (01) ==
LOC: ED 14:27
DX: K57.92 Diverticulitis of intestine, part unspecified, without perforation or abscess without bleeding (principal); K80.80 Other cholelithiasis without obstruction
CPT/HCPCS: 36415; 74177; 80053; 81001; 83690; 85025; 96361; 96374; 96375; 99284; J2270; J2405; J7030; Q9967

== ENCOUNTER 2021-10-31 15:31 | Outpatient (CLI) | payer BC ==
[2021-10-31 16:07] LABS: Erythrocyte Sedimentation Rate 24 mm/Hr (0-20)
[2021-10-31 16:12] LABS: Alanine Aminotransferase 19 units/L (7-56); Albumin 4.5 g/dL (3.9-5); Basophils # (Auto) 0.1 K/mm3 (0.0-0.1); Basophils % (Auto) 1.1 % (0.0-1.8); Blood Urea Nitrogen 13 mg/dL (7-17); Calcium 9.3 mg/dL (8.4-10.2); Eosinophils # (Auto) 0.1 K/mm3 (0.0-0.4); Eosinophils % (Auto) 1.5 % (0.0-4.3); Hematocrit 38.1 % (30.3-42.9); Hemoglobin 12.8 gm/dl (10.1-14.3); Hemolysis Index 6; Mean Corpuscular HGB Conc 34 % (30-34); Mean Corpuscular Volume 92 fl (79-97); Monocytes # (Auto) 0.7 K/mm3 (0.0-0.8); Monocytes % (Auto) 8.7 % (0.0-7.3); Platelet Count 225 K/mm3 (140-440); Red Blood Count 4.13 M/mm3 (3.65-5.03); Red Cell Distribution Width 13.5 % (13.2-15.2)
[2021-10-31 16:13] LABS: BUN/Creatinine Ratio 22
== END 2021-10-31 15:32 | disposition home or self-care (01) ==
LOC: LAB 15:31
DX: M06.89 Other specified rheumatoid arthritis, multiple sites (principal)
CPT/HCPCS: 36415; 80053; 85025; 85652; 86140

== ENCOUNTER 2021-12-30 09:25 | Outpatient (CLI) | payer BC | END 2021-12-30 09:26 | disposition home or self-care (01) | LOC: LAB 09:25 | PROVIDERS: ATTEND Urology | DX: N39.0 Urinary tract infection, site not specified (principal) | CPT/HCPCS: 87086 ==

== ENCOUNTER 2022-05-12 08:52 | Outpatient (CLI) | payer BC ==
[2022-05-12 09:24] LABS: Hematocrit 39.3 % (30.3-42.9); Hemoglobin 13.1 gm/dl (10.1-14.3); Mean Corpuscular HGB Conc 34 % (30-34); Mean Corpuscular Volume 93 fl (79-97); Platelet Count 238 K/mm3 (140-440); Red Blood Count 4.23 M/mm3 (3.65-5.03); Red Cell Distribution Width 13.6 % (13.2-15.2)
[2022-05-12 09:50] LABS: Alanine Aminotransferase 18 units/L (7-56); Albumin 4.4 g/dL (3.9-5); Blood Urea Nitrogen 15 mg/dL (7-17); Calcium 9.4 mg/dL (8.4-10.2); Hemolysis Index 5
[2022-05-12 10:12] LABS: BUN/Creatinine Ratio 21
[2022-05-12 11:18] LABS: Erythrocyte Sedimentation Rate QNS mm/Hr (0-20)
== END 2022-05-12 08:53 | disposition home or self-care (01) ==
LOC: LAB 08:52
DX: Z79.899 Other long term (current) drug therapy (principal)
CPT/HCPCS: 36415; 80053; 85027; 85652; 86140